=== PATIENT | female | born 1955 | race Caucasian/White ===

== ENCOUNTER 2024-11-07 12:10 | Inpatient (IN) | payer MEDICARE, OTHER ==
[~2024-11-07] VITALS: Ht 165.1 cm; Wt 73.5 kg
[~2024-11-07 12:10] MED LIST: CEFT1VIA14 IV
[2024-11-07] MEDS: IV NS 0.9% 1,000 ML BAG IV ONE (12:30)
[2024-11-07] MEDS: CEFEPIME 1 GM in IV D5W 50 ML IV ONE (12:30)
[2024-11-07 12:41] LABS: BASOPHILS # (AUTO) 0.1 K/uL (0.0-0.2); BASOPHILS % (AUTO) 0.9 % (0.0-2.0); EOSINOPHILS # (AUTO) 0.3 K/uL (0.0-0.7); EOSINOPHILS % (AUTO) 2.7 % (0.0-6.0); HEMATOCRIT 35 % (33-45); HEMOGLOBIN 11.1 g/dL (11.5-14.8); LYMPHOCYTES # (AUTO) 2.3 K/uL (0.8-4.8); LYMPHOCYTES % (AUTO) 18.3 % (20.0-44.0); MEAN CORPUSCULAR HEMOGLOBIN 26 PG (26.0-33.0); MEAN CORPUSCULAR HGB CONC 32 g/dl (31.0-36.0); MEAN CORPUSCULAR VOLUME 80 fL (82-100); MONOCYTES # (AUTO) 0.9 K/uL (0.1-1.30); MONOCYTES % (AUTO) 7.1 % (2.0-12.0); NEUTROPHILS # (AUTO) 9.1 K/uL (1.8-8.9); PLATELET COUNT (AUTO) 497 K/uL (150-450); RED BLOOD CELL COUNT(AUTO) 4.34 MIL/uL (4.0-5.2); RED CELL DISTRIBUTION WIDTH 15.9 % (11.5-15.0); WHITE BLOOD COUNT (AUTO) 12.8 K/uL (4.3-11.0)
[2024-11-07 12:51] LABS: INR 0.92 (0.91-1.10); PARTIAL THROMBOPLASTIN TIME 24.4 SEC (24.3-34.3); PROTHROMBIN TIME 9.5 SECS (9.2-11.1)
[2024-11-07 12:56] LABS: LACTIC ACID 1.6 mmol/L (0.4-2.0)
[2024-11-07 13:01] LABS: CALCIUM, SERUM 9.3 mg/dL (8.5-10.1); CARBON DIOXIDE 24 mmol/L (21-32); CHLORIDE 106 mmol/L (98-107); CREATININE 0.6 mg/dL (0.6-1.3); GLUCOSE 211 mg/dL (74-106); POTASSIUM 3.9 mmol/L (3.5-5.1); SODIUM SERUM 136 mmol/L (136-145); UREA NITROGEN, BLOOD 11 mg/dL (7-18)
[2024-11-07 13:05] LABS: ALANINE AMINOTRANSFERASE 13 U/L (12-78); ALBUMIN 2.8 g/dL (3.4-5.0); ALKALINE PHOSPHATASE 76 U/L (46-116); ASPARTATE AMINOTRANSFERASE 8 U/L (15-37); BILIRUBIN,DIRECT 0.1 mg/dL (0.0-0.2); BILIRUBIN,TOTAL 0.2 mg/dL (0.2-1.0); TOTAL PROTEIN, SERUM 6.9 g/dL (6.4-8.2)
[2024-11-07 13:10] LABS: APPEARANCE,URINE CLEAR (CLEAR); BILIRUBIN,URINE SMALL (NEGATIVE); BLOOD, URINE Moderate Ery/uL (NEGATIVE); COLOR,URINE YELLOW (YELLOW); KETONES,URINE Trace mg/dL (NEGATIVE); LEUKOCYTE ESTERASE ,URINE Large (NEGATIVE); PH,URINE 5.5 (5.0-8.0); PROTEIN,URINE 100 mg/dl (NEGATIVE); UGLUCOSE Negative (NEGATIVE); UROBILINOGEN,URINE 0.2 EU/dL (0.2)
[2024-11-07 13:12] LABS: NITRITE, URINE NEGATIVE (NEGATIVE)
[2024-11-07] MEDS ORDERED: INSU100I14 SQ (13:33)
[2024-11-07] MEDS ORDERED: ASCO500T10 PO (13:33)
[2024-11-07] MEDS ORDERED: LOSA50TA39 PO (13:33)
[2024-11-07] MEDS ORDERED: MULT-213 PO (13:33)
[2024-11-07] MEDS ORDERED: AMIN30LI24 PO (13:33)
[2024-11-07] MEDS ORDERED: NUT.237L70 PO (13:33)
[2024-11-07] MEDS ORDERED: METF-440 PO (13:33)
[2024-11-07] MEDS ORDERED: INSU100I40 SQ (13:33)
[2024-11-07] MEDS ORDERED: DEXT15DR23 EACHEYE (13:33)
[2024-11-07] MEDS ORDERED: PANT40TA49 PO (13:33)
[2024-11-07] MEDS ORDERED: HYDR-4076 PO (13:33)
[2024-11-07] MEDS ORDERED: GLUC1KIT IM (13:33)
[2024-11-07] MEDS ORDERED: CHOL100043 PO (13:33)
[2024-11-07] MEDS ORDERED: ASPI-1169 PO (13:33)
[2024-11-07] MEDS ORDERED: L. A1TAB10 PO (13:33)
[2024-11-07] MEDS ORDERED: INSU100I30 SQ (13:33)
[2024-11-07] MEDS ORDERED: POLY119P3 PO (13:33)
[2024-11-07] MEDS ORDERED: ACET325T53 PO (13:33)
[2024-11-07 13:34] LABS: ADD URINE CULTURE YES; BACTERIA,URINE 1+ /HPF (None Seen); WBC,URINE 21-50 /HPF (0-3)
[2024-11-07 13:35] LABS: SQUAMOUS EPITHELIAL CELL,UR Few /HPF (None Seen)
[2024-11-07 16:00] VITALS: BP 101/76; TEMP 98.1; O2SAT 99
[2024-11-07 17:19] VITALS: BP 101/76; TEMP 98.1; O2SAT 99
[2024-11-07 20:00] VITALS: BP 130/58; TEMP 98.4; O2SAT 97
[2024-11-07] MEDS ORDERED: MAG HYDROX/AL HYDROX/SIMETH 30 ML UDC PO PRN (22:00)
[2024-11-07] MEDS ORDERED: DEXTROSE 50%-WATER 50 ML DISP.SYRIN IV PRN (22:00)
[2024-11-07] MEDS ORDERED: MAGNESIUM HYDROXIDE 30 ML UDC PO PRN (22:00)
[2024-11-07] MEDS ORDERED: ONDANSETRON HCL/PF 4 MG/2 ML VIAL IVP PRN (22:00)
[2024-11-07] MEDS: IV NS 0.9% 1,000 ML IV SCH (22:23)
[2024-11-07] MEDS: ENOXAPARIN SODIUM 40 MG/0.4 ML DISP.SYRIN SQ SCH (22:26)
[2024-11-07] MEDS: BLOOD SUGAR DIAGNOSTIC 1 EACH STRIP IN SCH (22:33)
[2024-11-07] MEDS: INSULIN REGULAR, HUMAN 100 UNIT/ML 3 ML VIAL SQ PRN (22:33)
[2024-11-07] MEDS ORDERED: CEFEPIME 1 GM VIAL ONE (22:58)
[2024-11-07] MEDS: CEFEPIME 1 GM in IV NS 0.9% 100 ML IV ONE (23:35)
[2024-11-08 06:46] LABS: BASOPHILS # (AUTO) 0.1 K/uL (0.0-0.2); EOSINOPHILS # (AUTO) 0.2 K/uL (0.0-0.7); EOSINOPHILS % (AUTO) 2.1 % (0.0-6.0); HEMATOCRIT 32 % (33-45); HEMOGLOBIN 10.2 g/dL (11.5-14.8); LYMPHOCYTES # (AUTO) 1.7 K/uL (0.8-4.8); LYMPHOCYTES % (AUTO) 14.4 % (20.0-44.0); MEAN CORPUSCULAR HEMOGLOBIN 26 PG (26.0-33.0); MEAN CORPUSCULAR HGB CONC 32 g/dl (31.0-36.0); MEAN CORPUSCULAR VOLUME 80 fL (82-100); MONOCYTES # (AUTO) 0.7 K/uL (0.1-1.30); MONOCYTES % (AUTO) 6.1 % (2.0-12.0); NEUTROPHILS # (AUTO) 8.8 K/uL (1.8-8.9); NEUTROPHILS % (AUTO) 76.4 % (43.0-81.0); PLATELET COUNT (AUTO) 442 K/uL (150-450); RED CELL DISTRIBUTION WIDTH 15.4 % (11.5-15.0); WHITE BLOOD COUNT (AUTO) 11.5 K/uL (4.3-11.0)
[2024-11-08 07:00] VITALS: BP 109/73; TEMP 97.4; O2SAT 99
[2024-11-08 07:13] LABS: CALCIUM, SERUM 8.6 mg/dL (8.5-10.1); CREATININE 0.4 mg/dL (0.6-1.3); MAGNESIUM 1.6 mg/dL (1.8-2.4); PHOSPHORUS 2.8 mg/dL (2.5-4.9); POTASSIUM 3.7 mmol/L (3.5-5.1)
[2024-11-08] MEDS: PANTOPRAZOLE 40 MG VIAL IV SCH (08:10)
[2024-11-08] MEDS: CEFEPIME 1 GM in IV D5W 50 ML IV SCH (10:24)
[2024-11-08] MEDS: Magnesium 1GM/D5W 100ML PREMIX 100 ML IV SCH (11:26)
[2024-11-08] MEDS: THERAHONEY GEL 1.5 OZ TUBE TP SCH (14:05)
[2024-11-08 16:00] VITALS: BP 114/71; TEMP 97.9; O2SAT 98
[2024-11-08 20:00] VITALS: BP 152/80; TEMP 98.4; O2SAT 97
[2024-11-09 06:57] LABS: CALCIUM, SERUM 8.7 mg/dL (8.5-10.1); CREATININE 0.4 mg/dL (0.6-1.3); PHOSPHORUS 2.2 mg/dL (2.5-4.9); POTASSIUM 3.5 mmol/L (3.5-5.1)
[2024-11-09 07:06] LABS: IRON, SERUM 14 ug/dl (50-175); TOTAL IRON BINDING CAPACITY 229 ug/dl (250-450)
[2024-11-09 07:13] LABS: BASOPHILS # (AUTO) 0.1 K/uL (0.0-0.2); BASOPHILS % (AUTO) 0.5 % (0.0-2.0); EOSINOPHILS # (AUTO) 0.1 K/uL (0.0-0.7); EOSINOPHILS % (AUTO) 0.5 % (0.0-6.0); HEMATOCRIT 34 % (33-45); HEMOGLOBIN 10.7 g/dL (11.5-14.8); LYMPHOCYTES # (AUTO) 1.1 K/uL (0.8-4.8); LYMPHOCYTES % (AUTO) 8.6 % (20.0-44.0); MEAN CORPUSCULAR HEMOGLOBIN 26 PG (26.0-33.0); MEAN CORPUSCULAR HGB CONC 32 g/dl (31.0-36.0); MEAN CORPUSCULAR VOLUME 81 fL (82-100); MONOCYTES # (AUTO) 0.7 K/uL (0.1-1.30); NEUTROPHILS # (AUTO) 10.5 K/uL (1.8-8.9); NEUTROPHILS % (AUTO) 84.4 % (43.0-81.0); PLATELET COUNT (AUTO) 445 K/uL (150-450); RED CELL DISTRIBUTION WIDTH 15.8 % (11.5-15.0); WHITE BLOOD COUNT (AUTO) 12.4 K/uL (4.3-11.0)
[2024-11-09 07:38] LABS: FERRITIN 39 ng/mL (8-388)
[2024-11-09 08:00] VITALS: BP 127/56; TEMP 98.1; O2SAT 100
[2024-11-09] MEDS: Z GUARD REMEDY 4 OZ OINT TP PRN (08:23)
[2024-11-09] MEDS: ASPIRIN 300 MG/SUPP.RECT RC SCH (15:54)
[2024-11-09 16:00] VITALS: BP 116/63; TEMP 99.7; O2SAT 99
[2024-11-09] MEDS: Sodium Phosphate 15 MMOL in IV NS 0.9% 245 ML IV ONE (17:24)
[2024-11-09 20:00] VITALS: BP 136/100; TEMP 99; O2SAT 100
[2024-11-09] MEDS: ATORVASTATIN 40 MG TABLET NG SCH (22:00)
[2024-11-10 06:54] LABS: BASOPHILS # (AUTO) 0.1 K/uL (0.0-0.2); BASOPHILS % (AUTO) 0.5 % (0.0-2.0); EOSINOPHILS # (AUTO) 0.1 K/uL (0.0-0.7); EOSINOPHILS % (AUTO) 0.4 % (0.0-6.0); HEMATOCRIT 33 % (33-45); HEMOGLOBIN 10.4 g/dL (11.5-14.8); LYMPHOCYTES # (AUTO) 1.2 K/uL (0.8-4.8); LYMPHOCYTES % (AUTO) 8.9 % (20.0-44.0); MEAN CORPUSCULAR HEMOGLOBIN 25 PG (26.0-33.0); MEAN CORPUSCULAR HGB CONC 32 g/dl (31.0-36.0); MEAN CORPUSCULAR VOLUME 80 fL (82-100); MONOCYTES % (AUTO) 7.9 % (2.0-12.0); NEUTROPHILS # (AUTO) 10.7 K/uL (1.8-8.9); NEUTROPHILS % (AUTO) 82.3 % (43.0-81.0); PLATELET COUNT (AUTO) 475 K/uL (150-450); RED BLOOD CELL COUNT(AUTO) 4.14 MIL/uL (4.0-5.2)
[2024-11-10 07:24] LABS: CHOLESTEROL 199 mg/dL (<200); HDL CHOLESTEROL 63 mg/dL (40-60); LDL 104 mg/dL (0-99); TRIGLYCERIDES 102 mg/dL (30-150)
[2024-11-10 07:35] LABS: CALCIUM, SERUM 8.4 mg/dL (8.5-10.1); CREATININE 0.3 mg/dL (0.6-1.3); MAGNESIUM 1.6 mg/dL (1.8-2.4); PHOSPHORUS 2.3 mg/dL (2.5-4.9); POTASSIUM 3.1 mmol/L (3.5-5.1)
[2024-11-10 08:00] VITALS: BP 126/88; TEMP 98; O2SAT 99
[2024-11-10] MEDS: CLOPIDOGREL BISULFATE 75 MG TABLET NG SCH (08:23)
[2024-11-10] MEDS: ASPIRIN 81 MG TAB.CHEW NG SCH (08:23)
[2024-11-10] MEDS ORDERED: MAGNESIUM OXIDE 400 MG TABLET PO ONE (11:00)
[2024-11-10] MEDS ORDERED: POTASSIUM CHLORIDE 20 MEQ POWDER PACKET NG SCH (11:00)
[2024-11-10] MEDS: Magnesium 1GM/D5W 100ML PREMIX 100 ML IV SCH (11:06)
[2024-11-10] MEDS: POTASSIUM CL. PREMIX PERIPHER. 50 ML IV SCH (11:07)
[2024-11-10 16:00] VITALS: BP 123/67; TEMP 99.3; O2SAT 99
[2024-11-10] MEDS: GLUCERNA 1.2 1,000 ML BOTTLE NG PRN (17:27)
[2024-11-10] MEDS: BLOOD SUGAR DIAGNOSTIC 1 EACH STRIP IN SCH (18:00)
[2024-11-10] MEDS: Sodium Phosphate 15 MMOL in IV NS 0.9% 245 ML IV SCH (18:47)
[2024-11-10 20:00] VITALS: BP 157/97; TEMP 99; O2SAT 98
[2024-11-11] MEDS: INSULIN REGULAR, HUMAN 100 UNIT/ML 3 ML VIAL SQ PRN (00:09)
[2024-11-11 07:37] LABS: BASOPHILS # (AUTO) 0.1 K/uL (0.0-0.2); BASOPHILS % (AUTO) 1.1 % (0.0-2.0); EOSINOPHILS # (AUTO) 0.1 K/uL (0.0-0.7); EOSINOPHILS % (AUTO) 1.4 % (0.0-6.0); HEMATOCRIT 32 % (33-45); HEMOGLOBIN 10.3 g/dL (11.5-14.8); LYMPHOCYTES # (AUTO) 1.6 K/uL (0.8-4.8); LYMPHOCYTES % (AUTO) 14.7 % (20.0-44.0); MEAN CORPUSCULAR HEMOGLOBIN 26 PG (26.0-33.0); MEAN CORPUSCULAR HGB CONC 32 g/dl (31.0-36.0); MEAN CORPUSCULAR VOLUME 80 fL (82-100); MONOCYTES # (AUTO) 1.2 K/uL (0.1-1.30); MONOCYTES % (AUTO) 11.2 % (2.0-12.0); NEUTROPHILS # (AUTO) 7.7 K/uL (1.8-8.9); NEUTROPHILS % (AUTO) 71.6 % (43.0-81.0); PLATELET COUNT (AUTO) 379 K/uL (150-450); RED BLOOD CELL COUNT(AUTO) 4.05 MIL/uL (4.0-5.2); RED CELL DISTRIBUTION WIDTH 15.9 % (11.5-15.0); WHITE BLOOD COUNT (AUTO) 10.8 K/uL (4.3-11.0)
[2024-11-11 08:05] LABS: CALCIUM, SERUM 8.3 mg/dL (8.5-10.1); CREATININE 0.4 mg/dL (0.6-1.3); MAGNESIUM 2.1 mg/dL (1.8-2.4); POTASSIUM 4.1 mmol/L (3.5-5.1)
[2024-11-11 08:41] VITALS: BP 128/81; TEMP 98.2; O2SAT 100
[2024-11-11 17:04] VITALS: BP 151/95; TEMP 98.6; O2SAT 98
[2024-11-11 17:30] VITALS: BP 145/81; TEMP 97.5; O2SAT 98
[2024-11-11 20:00] VITALS: BP_SYST 148; BP_SYST 164; BP_DIAS 105; BP_DIAS 97; TEMP 98.4; O2SAT 99
[2024-11-12 07:13] LABS: BASOPHILS # (AUTO) 0.1 K/uL (0.0-0.2); BASOPHILS % (AUTO) 0.5 % (0.0-2.0); EOSINOPHILS # (AUTO) 0.1 K/uL (0.0-0.7); EOSINOPHILS % (AUTO) 0.9 % (0.0-6.0); HEMATOCRIT 33 % (33-45); HEMOGLOBIN 10.6 g/dL (11.5-14.8); LYMPHOCYTES # (AUTO) 1.9 K/uL (0.8-4.8); LYMPHOCYTES % (AUTO) 13.7 % (20.0-44.0); MEAN CORPUSCULAR HEMOGLOBIN 26 PG (26.0-33.0); MEAN CORPUSCULAR HGB CONC 33 g/dl (31.0-36.0); MEAN CORPUSCULAR VOLUME 79 fL (82-100); MONOCYTES # (AUTO) 1.1 K/uL (0.1-1.30); NEUTROPHILS # (AUTO) 10.4 K/uL (1.8-8.9); NEUTROPHILS % (AUTO) 76.9 % (43.0-81.0); PLATELET COUNT (AUTO) 466 K/uL (150-450); RED BLOOD CELL COUNT(AUTO) 4.12 MIL/uL (4.0-5.2); WHITE BLOOD COUNT (AUTO) 13.6 K/uL (4.3-11.0)
[2024-11-12 07:30] VITALS: BP 149/101; TEMP 99; O2SAT 99
[2024-11-12 07:36] LABS: ALBUMIN 2.4 g/dL (3.4-5.0); BILIRUBIN,TOTAL 0.3 mg/dL (0.2-1.0); CALCIUM, SERUM 9.1 mg/dL (8.5-10.1); CREATININE 0.4 mg/dL (0.6-1.3); MAGNESIUM 1.9 mg/dL (1.8-2.4); PHOSPHORUS 2.7 mg/dL (2.5-4.9); POTASSIUM 3.7 mmol/L (3.5-5.1); TOTAL PROTEIN, SERUM 6.6 g/dL (6.4-8.2)
[2024-11-12] MEDS: PANTOPRAZOLE 40 MG/PACK PACK NG SCH (08:34)
[2024-11-12 16:13] VITALS: BP 152/91; TEMP 98.1; O2SAT 99
[2024-11-12] MEDS: ACETAMINOPHEN 325 MG TABLET PO PRN (17:54)
[2024-11-12 20:00] VITALS: BP 149/98; TEMP 98.2; O2SAT 98
[2024-11-12 20:29] VITALS: BP 149/98; TEMP 98.2; O2SAT 98
[2024-11-13 07:02] LABS: ALBUMIN 2.2 g/dL (3.4-5.0); BILIRUBIN,TOTAL 0.2 mg/dL (0.2-1.0); CALCIUM, SERUM 9.1 mg/dL (8.5-10.1); CREATININE 0.3 mg/dL (0.6-1.3); MAGNESIUM 1.9 mg/dL (1.8-2.4); PHOSPHORUS 2.8 mg/dL (2.5-4.9); POTASSIUM 3.9 mmol/L (3.5-5.1); TOTAL PROTEIN, SERUM 6.2 g/dL (6.4-8.2)
[2024-11-13 07:04] LABS: BASOPHILS # (AUTO) 0.1 K/uL (0.0-0.2); BASOPHILS % (AUTO) 0.4 % (0.0-2.0); EOSINOPHILS # (AUTO) 0.1 K/uL (0.0-0.7); EOSINOPHILS % (AUTO) 0.7 % (0.0-6.0); HEMATOCRIT 31 % (33-45); LYMPHOCYTES # (AUTO) 1.6 K/uL (0.8-4.8); LYMPHOCYTES % (AUTO) 13.1 % (20.0-44.0); MEAN CORPUSCULAR HEMOGLOBIN 26 PG (26.0-33.0); MEAN CORPUSCULAR HGB CONC 32 g/dl (31.0-36.0); MEAN CORPUSCULAR VOLUME 79 fL (82-100); MONOCYTES # (AUTO) 1.1 K/uL (0.1-1.30); MONOCYTES % (AUTO) 9.1 % (2.0-12.0); NEUTROPHILS # (AUTO) 9.6 K/uL (1.8-8.9); NEUTROPHILS % (AUTO) 76.7 % (43.0-81.0); PLATELET COUNT (AUTO) 446 K/uL (150-450); RED BLOOD CELL COUNT(AUTO) 3.92 MIL/uL (4.0-5.2); RED CELL DISTRIBUTION WIDTH 16.1 % (11.5-15.0); WHITE BLOOD COUNT (AUTO) 12.5 K/uL (4.3-11.0)
[2024-11-13 08:00] VITALS: BP 118/69; TEMP 98.9; O2SAT 100
[2024-11-13 16:00] VITALS: BP 162/92; TEMP 98.8; O2SAT 99
[2024-11-13 17:00] VITALS: BP 147/85
[2024-11-13 20:00] VITALS: BP 122/88; TEMP 98.6; O2SAT 100
[2024-11-14 07:30] VITALS: BP 164/131; TEMP 98.6; O2SAT 99
[2024-11-14 07:55] VITALS: BP 164/131; TEMP 98.6; O2SAT 99
[2024-11-14] MEDS ORDERED: ACETAMINOPHEN 325 MG TABLET PO PRN (09:30)
[2024-11-14] MEDS ORDERED: GLUCAGON,HUMAN RECOMBINANT 1 MG/VIAL VIAL IM PRN (10:30)
[2024-11-14] MEDS: hydrALAZINE HCL 25 MG TABLET PO PRN (10:43)
[2024-11-14] MEDS: BOOST FOOD- BERRY 237 ML BOX PO SCH (12:00)
[2024-11-14] MEDS: INSULIN LISPRO/ASPART 100 UNIT/ML CARTRIDGE SQ SCH (12:10)
[2024-11-14 16:00] VITALS: BP 129/84; TEMP 98.2; O2SAT 100
[2024-11-14] MEDS: PROSOURCE / PROSTAT (PYXIS) 30 ML UDC PO SCH (17:00)
[2024-11-14] MEDS: PANTOPRAZOLE 40 MG TABLET.DR PO SCH (17:54)
[2024-11-14] MEDS: POLYETHYLENE GLYCOL 3350 17 GM POWD.PACK PO SCH (17:54)
[2024-11-14] MEDS: ACIDOPHILUS/BULGARICUS 1 EACH TAB.CHEW PO SCH (17:54)
[2024-11-14] MEDS: LOSARTAN POTASSIUM 50 MG TABLET PO SCH (17:55)
[2024-11-14 18:01] VITALS: O2SAT 99
[2024-11-14 20:32] VITALS: BP 116/105; TEMP 97.9; O2SAT 97
[2024-11-15 07:30] VITALS: BP 141/98; TEMP 98.4; O2SAT 96
[2024-11-15 07:57] LABS: BASOPHILS # (AUTO) 0.1 K/uL (0.0-0.2); BASOPHILS % (AUTO) 0.4 % (0.0-2.0); EOSINOPHILS # (AUTO) 0.1 K/uL (0.0-0.7); EOSINOPHILS % (AUTO) 0.4 % (0.0-6.0); HEMATOCRIT 29 % (33-45); HEMOGLOBIN 9.3 g/dL (11.5-14.8); LYMPHOCYTES # (AUTO) 1.5 K/uL (0.8-4.8); LYMPHOCYTES % (AUTO) 11.4 % (20.0-44.0); MEAN CORPUSCULAR HEMOGLOBIN 25 PG (26.0-33.0); MEAN CORPUSCULAR HGB CONC 32 g/dl (31.0-36.0); MEAN CORPUSCULAR VOLUME 79 fL (82-100); MONOCYTES # (AUTO) 1.2 K/uL (0.1-1.30); MONOCYTES % (AUTO) 8.7 % (2.0-12.0); NEUTROPHILS # (AUTO) 10.6 K/uL (1.8-8.9); NEUTROPHILS % (AUTO) 79.1 % (43.0-81.0); PLATELET COUNT (AUTO) 413 K/uL (150-450); RED CELL DISTRIBUTION WIDTH 15.6 % (11.5-15.0); WHITE BLOOD COUNT (AUTO) 13.5 K/uL (4.3-11.0)
[2024-11-15 08:03] LABS: CALCIUM, SERUM 8.8 mg/dL (8.5-10.1); CREATININE 0.4 mg/dL (0.6-1.3); MAGNESIUM 1.9 mg/dL (1.8-2.4); PHOSPHORUS 2.5 mg/dL (2.5-4.9); POTASSIUM 4.1 mmol/L (3.5-5.1)
[2024-11-15] MEDS: ASPIRIN 81 MG TAB.CHEW PO SCH (09:00)
[2024-11-15] MEDS: CHOLECALCIFEROL 1,000 UNIT TABLET (VIT D3) PO SCH (09:28)
[2024-11-15] MEDS: ASCORBIC ACID 500 MG TABLET PO SCH (09:28)
[2024-11-15] MEDS: MULTIVIT W/MINERALS 1 TAB TABLET PO SCH (09:29)
[2024-11-15 16:00] VITALS: BP 127/85; TEMP 99.5; O2SAT 95
[2024-11-15 20:00] VITALS: BP 143/85; TEMP 98.8; O2SAT 93
[2024-11-15] MEDS: INSULIN GLARGINE, 100 UNIT/ML CARTRIDGE SQ SCH (21:53)
[2024-11-16 06:34] LABS: INR 0.96 (0.91-1.10); PARTIAL THROMBOPLASTIN TIME 24.5 SEC (24.3-34.3); PROTHROMBIN TIME 10.2 SECS (9.2-11.1)
[2024-11-16 06:39] LABS: CALCIUM, SERUM 8.9 mg/dL (8.5-10.1); CREATININE 0.4 mg/dL (0.6-1.3); PHOSPHORUS 3.3 mg/dL (2.5-4.9); POTASSIUM 4.4 mmol/L (3.5-5.1)
[2024-11-16 06:44] LABS: BASOPHILS # (AUTO) 0.1 K/uL (0.0-0.2); BASOPHILS % (AUTO) 0.5 % (0.0-2.0); EOSINOPHILS # (AUTO) 0.1 K/uL (0.0-0.7); EOSINOPHILS % (AUTO) 0.8 % (0.0-6.0); HEMATOCRIT 32 % (33-45); LYMPHOCYTES # (AUTO) 1.9 K/uL (0.8-4.8); LYMPHOCYTES % (AUTO) 15.1 % (20.0-44.0); MEAN CORPUSCULAR HEMOGLOBIN 25 PG (26.0-33.0); MEAN CORPUSCULAR HGB CONC 32 g/dl (31.0-36.0); MEAN CORPUSCULAR VOLUME 79 fL (82-100); NEUTROPHILS # (AUTO) 9.7 K/uL (1.8-8.9); NEUTROPHILS % (AUTO) 75.6 % (43.0-81.0); PLATELET COUNT (AUTO) 438 K/uL (150-450); RED BLOOD CELL COUNT(AUTO) 4.01 MIL/uL (4.0-5.2); WHITE BLOOD COUNT (AUTO) 12.8 K/uL (4.3-11.0)
[2024-11-16 07:30] VITALS: BP 166/84; TEMP 97.5; O2SAT 93
[2024-11-16 15:39] VITALS: BP 147/75; TEMP 99.5; O2SAT 95
[2024-11-16 16:03] VITALS: BP 147/75; TEMP 99.5; O2SAT 92
[2024-11-16] MEDS: POLYVINYL ALCOHOL 15 ML BOTTLE EACHEYE PRN (17:35)
[2024-11-16] MEDS: IV D5/0.45 NACL 1,000 ML IV SCH (17:46)
[2024-11-16 20:00] VITALS: BP 143/97; TEMP 99; O2SAT 98
[2024-11-17 06:47] LABS: BASOPHILS # (AUTO) 0.1 K/uL (0.0-0.2); BASOPHILS % (AUTO) 0.6 % (0.0-2.0); EOSINOPHILS # (AUTO) 0.1 K/uL (0.0-0.7); EOSINOPHILS % (AUTO) 1.2 % (0.0-6.0); HEMATOCRIT 30 % (33-45); HEMOGLOBIN 9.4 g/dL (11.5-14.8); LYMPHOCYTES # (AUTO) 1.7 K/uL (0.8-4.8); LYMPHOCYTES % (AUTO) 13.9 % (20.0-44.0); MEAN CORPUSCULAR HEMOGLOBIN 25 PG (26.0-33.0); MEAN CORPUSCULAR HGB CONC 31 g/dl (31.0-36.0); MEAN CORPUSCULAR VOLUME 79 fL (82-100); MONOCYTES % (AUTO) 8.2 % (2.0-12.0); NEUTROPHILS # (AUTO) 9.2 K/uL (1.8-8.9); NEUTROPHILS % (AUTO) 76.1 % (43.0-81.0); PLATELET COUNT (AUTO) 443 K/uL (150-450); RED BLOOD CELL COUNT(AUTO) 3.84 MIL/uL (4.0-5.2); RED CELL DISTRIBUTION WIDTH 15.9 % (11.5-15.0)
[2024-11-17 07:00] VITALS: BP 153/98; TEMP 98.4; O2SAT 97
[2024-11-17 07:36] LABS: CALCIUM, SERUM 8.8 mg/dL (8.5-10.1); CREATININE 0.5 mg/dL (0.6-1.3); PHOSPHORUS 2.4 mg/dL (2.5-4.9); POTASSIUM 4.2 mmol/L (3.5-5.1)
[2024-11-17] MEDS: PANTOPRAZOLE 40 MG/PACK PACK PO SCH (10:38)
[2024-11-17 10:58] VITALS: BP 153/98
[2024-11-17] MEDS ORDERED: LOSA50TA39 GT (12:26)
[2024-11-17] MEDS ORDERED: ASCO500T21 GT (12:26)
[2024-11-17] MEDS ORDERED: NUT.237L45 NG (12:26)
[2024-11-17] MEDS ORDERED: Z Guard Remedy TP (12:26)
[2024-11-17] MEDS ORDERED: ACID1TAB12 GT (12:26)
[2024-11-17] MEDS ORDERED: Polyvinyl Alcohol EACHEYE (12:26)
[2024-11-17] MEDS ORDERED: ASPI-1169 NG (12:26)
[2024-11-17] MEDS ORDERED: Insulin Glargine,Hum SQ (12:26)
[2024-11-17] MEDS ORDERED: ACET325T53 GT (12:26)
[2024-11-17] MEDS ORDERED: Blood Sugar Diagnostic IN (12:26)
[2024-11-17] MEDS ORDERED: PANT40SU2 GT (12:26)
[2024-11-17] MEDS ORDERED: ENOX40DI SQ (12:26)
[2024-11-17] MEDS ORDERED: INSU100V28 SQ (12:26)
[2024-11-17] MEDS ORDERED: ATOR40TA GT (12:26)
[2024-11-17] MEDS ORDERED: COLL30OI TP (12:26)
[2024-11-17] MEDS ORDERED: POLY17PO29 GT (12:26)
[2024-11-17] MEDS ORDERED: CHOL100040 GT (12:26)
[2024-11-17] MEDS ORDERED: K PHOS NEUTRAL 250 MG TABLET PO ONE (15:30)
== END 2024-11-17 18:32 | DRG 64 ==
LOC: ER 12:15 → MED 15:16
PROVIDERS: ATTEND Nurse Practitioner Acute Care
PROC: 0DH63UZ Insertion of Feeding Device into Stomach, Percutaneous Approach (ICD-10-PCS; principal; 2024-11-16 10:30)
DX: I63.532 Cerebral infarction due to unspecified occlusion or stenosis of left posterior cerebral artery (principal); G93.41 Metabolic encephalopathy; L89.153 Pressure ulcer of sacral region, stage 3; J96.01 Acute respiratory failure with hypoxia; N39.0 Urinary tract infection, site not specified; F20.0 Paranoid schizophrenia; I69.354 Hemiplegia and hemiparesis following cerebral infarction affecting left non-dominant side; L97.812 Non-pressure chronic ulcer of other part of right lower leg with fat layer exposed; K29.70 Gastritis, unspecified, without bleeding; R62.7 Adult failure to thrive; K21.9 Gastro-esophageal reflux disease without esophagitis; K59.00 Constipation, unspecified; Z87.442 Personal history of urinary calculi; F32.A Depression, unspecified; E11.42 Type 2 diabetes mellitus with diabetic polyneuropathy; E78.5 Hyperlipidemia, unspecified; F41.1 Generalized anxiety disorder; I10 Essential (primary) hypertension; B18.2 Chronic viral hepatitis C; Z79.84 Long term (current) use of oral hypoglycemic drugs; Z79.4 Long term (current) use of insulin; Z79.82 Long term (current) use of aspirin; Z79.899 Other long term (current) drug therapy; B96.89 Other specified bacterial agents as the cause of diseases classified elsewhere; B96.20 Unspecified Escherichia coli [E. coli] as the cause of diseases classified elsewhere; L22 Diaper dermatitis; R32 Unspecified urinary incontinence; Z78.1 Physical restraint status; Z86.61 Personal history of infections of the central nervous system; E11.65 Type 2 diabetes mellitus with hyperglycemia; Z74.01 Bed confinement status; D64.9 Anemia, unspecified; I63.81 Other cerebral infarction due to occlusion or stenosis of small artery; R29.721 NIHSS score 21
CPT/HCPCS: 36415; 43246; 70450-TC; 71045-TC; 80048-TC; 80053-TC; 80061-TC; 80076-TC; 81001; 82728-TC; 82962-TC; 83540-TC; 83605-TC; 83735-TC; 84100-TC; 84484-TC; 85025-TC; 85610-TC; 85730-TC; 86850-TC; 87040-TC; 87081-TC; 87086-TC; 92526; 92611-TC; 93307-TC; 97110-TC; 97112-TC; 97530-TC; 97535-TC; A4223; A9563; G0378; J0692; J1650; J1815; J2470; J2704; J3475; J3480; J3490; J7030; J7050; J7060